=== PATIENT | male | born 1950 | race Caucasian/White ===

== ENCOUNTER 2019-10-13 01:28 | Emergency (ER) | payer MEDICARE ==
[~2019-10-13] VITALS: Ht 182.9 cm; Wt 132.0 kg
--- NOTE | 2019-10-13 01:48 | NUR ---
PT RESTING ON GURNEY, PROVIDED PT WITH GOWN. ERP AT PT'S BEDSIDE FOR NIKKY
[2019-10-13] MEDS ORDERED: KETOROLAC 30 MG/1 ML ONE (01:57)
[2019-10-13] MEDS ORDERED: MORPHINE SULFATE 4 MG/ML, 1ML ONE (01:58)
[2019-10-13] MEDS ORDERED: LORazepam 2 MG/ML, 1ML ONE (01:58)
[2019-10-13] MEDS ORDERED: LIDOCAINE 2% VISCOUS 15 ML UDC MM ONE (02:00)
[2019-10-13] MEDS ORDERED: KETOROLAC 30 MG/1 ML IVPush ONE (02:00)
[2019-10-13] MEDS ORDERED: PLEASE ENTER ALLERGIES MC SCH (02:00)
[2019-10-13] MEDS ORDERED: SODIUM CHLORIDE FLUSH 10ML SYR IVF ONE (02:00)
[2019-10-13] MEDS ORDERED: LORazepam 2 MG/ML, 1ML IVPush ONE (02:00)
[2019-10-13] MEDS ORDERED: MORPHINE SULFATE 4 MG/ML, 1ML IVPush PRN (02:00)
[2019-10-13] MEDS ORDERED: FENTANYL PF 100 MCG/2ML IV ONE ×2 (02:06→02:30)
[2019-10-13] MEDS ORDERED: FENTANYL PF 100 MCG/2ML ONE (02:09)
[2019-10-13] MEDS ORDERED: L.E.T SOLUTION TP ONE ×2 (02:09→02:30)
[2019-10-13] MEDS ORDERED: LIDOCAINE 2% VISCOUS 15 ML UDC ONE (02:31)
[2019-10-13 02:37] LABS: BASOPHILS # (AUTO) 0.04 x10^3/uL (0-0.1); BASOPHILS % (AUTO) 0 % (0-1); EOSINOPHILS # (AUTO) 0.15 x10^3/uL (0-0.4); EOSINOPHILS % (AUTO) 1 % (1-7); LYMPHOCYTES # (AUTO) 1.43 x10^3/uL (1-3.4); LYMPHOCYTES % (AUTO) 13 % (22-44); MD NO; MEAN CORPUSCULAR HEMOGLOBIN 30.2 pg (27.5-34.5); MEAN CORPUSCULAR HGB CONC 33.1 g/dL (33.2-36.2); MEAN CORPUSCULAR VOLUME 91.1 fL (81-97); MEAN PLATELET VOLUME 7.9 fL (7.4-10.4); MONOCYTES # (AUTO) 0.81 x10^3/uL (0.2-0.8); MONOCYTES % (AUTO) 7 % (2-9); NEUTROPHILS # (AUTO) 8.72 x10^3/uL (1.8-6.8); NEUTROPHILS % (AUTO) 78 % (42-75); PLATELET COUNT 206 x10^3/uL (130-400); RED CELL DISTRIBUTION WIDTH 14.5 % (9.4-14.8)
[2019-10-13 02:48] LABS: ALBUMIN 3.6 g/dL (3.4-5.0); ANION GAP 7 mmol/L (5-15); CALCIUM 8.5 mg/dL (8.5-10.1); CHLORIDE 103 mmol/L (98-107)
[2019-10-13 02:52] LABS: TROPONIN I < 0.015 ng/mL (0.000-0.045)
--- NOTE | 2019-10-13 03:07 | NUR ---
BREAK RN: PATIENT TO CT SCAN.
[2019-10-13] MEDS ORDERED: LISI2.5T PO (03:33)
[2019-10-13] MEDS ORDERED: LEVO25TA2 PO (03:33)
[2019-10-13] MEDS ORDERED: ATOR10TA9 PO (03:33)
[2019-10-13 03:37] VITALS: BP 125/67
--- NOTE | 2019-10-13 03:38 | NUR ---
PT RESTING ON GURJULIETH, STATED " I FEEL A LITTLE BETTER", FAMILY AT BEDSIDE, MONITORS IN PLACE, SIDERAILS UP X2, CALL LIGHT WITHIN REACH. AWAITING LAB, CT RESULT
[2019-10-13] MEDS ORDERED: OMNIPAQUE 350 MG/ML, 100ML BOTTLE ONE (04:52)
== END 2019-10-13 04:22 | disposition home or self-care (01) ==
LOC: ED 03:29
DX: J02.9 Acute pharyngitis, unspecified (principal); F41.1 Generalized anxiety disorder; R09.82 Postnasal drip; R94.31 Abnormal electrocardiogram [ECG] [EKG]; I10 Essential (primary) hypertension; E78.00 Pure hypercholesterolemia, unspecified
CPT/HCPCS: 36415; 70491; 80048; 82040; 84484; 85025; 86308; 87081; 87880; 93005; 96374; 96375; 99285; J1885; J2060; J3010; Q9967

== ENCOUNTER 2019-10-30 14:38 | Emergency (ER) | payer MEDICARE ==
[~2019-10-30] VITALS: Ht 182.9 cm; Wt 131.8 kg
[~2019-10-30 14:38] MED LIST: ATOR10TA9 PO; LEVO25TA2 PO; LISI2.5T PO
--- NOTE | 2019-10-30 15:03 | NUR ---
PT BIB [facility] FROM [facility] OFFICE FOR SYNCOPAL EPISODE 15 MINUTES AFTER PROCEDURE IN THE OFFICE. PT REPORTS PANICKING AFTER MD TOLD HIM HE WAS NOT GOING TO BE ABLE TO DO MUCH FOR HIS EAR. BS WAS 117 ON SCENE. NO TRAUMA PT SLUMPED IN CHAIR. PER [facility] PT WAS PALE, COOL, AND DIAPHORETIC ON SCENE BUT HAS REOLVED AFTER 500 OF NS.
--- NOTE | 2019-10-30 15:05 | NUR ---
REPORT TO REMY MCINTOSH.
[2019-10-30] MEDS ORDERED: LEVO112T4 PO (15:13)
[2019-10-30] MEDS ORDERED: LORA-446 PO (15:13)
[2019-10-30] MEDS ORDERED: NASOCORT NAS (15:13)
[2019-10-30] MEDS ORDERED: DIAZ2TAB3 PO (15:13)
[2019-10-30] MEDS ORDERED: HYDR12.517 PO (15:13)
[2019-10-30] MEDS ORDERED: ATOR20TA PO (15:13)
[2019-10-30] MEDS ORDERED: LISI-170 PO (15:13)
[2019-10-30 17:15] VITALS: BP 134/72
== END 2019-10-30 17:17 | disposition home or self-care (01) ==
LOC: ED 16:58
DX: R55 Syncope and collapse (principal); J02.9 Acute pharyngitis, unspecified; F41.9 Anxiety disorder, unspecified; H92.01 Otalgia, right ear; R09.81 Nasal congestion; I10 Essential (primary) hypertension
CPT/HCPCS: 74220; 99283